=== PATIENT | male | born 1970 | race Caucasian/White ===

== ENCOUNTER 2019-12-13 20:08 | Emergency (ER) | payer OTHER ==
[~2019-12-13] VITALS: Ht 185.4 cm; Wt 102.8 kg
[2019-12-13] MEDS ORDERED: HYDROcodone/acetaminophen 5mg/325mg tablet PO STA (20:19)
[2019-12-13] MEDS ORDERED: ketamine 10mg/ml 20ml inj IV ONE (21:05)
[2019-12-13] MEDS ORDERED: ketamine 50 mg/ml 10ml vial IV ONE (21:30)
--- NOTE | 2019-12-13 21:42 | NUR ---
AWAITING RT, STATES HE IS READY. PT ON CARDIAC MONITORING, SP02 AND NC AT BS AND BP CUFF ON LEFT ANKLE. SWATH APPLIED TO HIS CHEST ALREADY. HIS IV IS PATENT. NS INFUSING. MEDS ON STANDBY.
--- NOTE | 2019-12-13 21:54 | NUR ---
CONSENT SIGNED, RT AT THE BS. MADE AWARE.
--- NOTE | 2019-12-13 22:07 | NUR ---
xray here for post reduction films
--- NOTE | 2019-12-13 22:10 | NUR ---
pt took half a swing at [place] the tech. Calmed pt down, instructed him it is just the medicine, that he is safe.
--- NOTE | 2019-12-13 22:24 | NUR ---
He is well now. He said that he felt like he was on a cloud pulling books and that everything was so vivid. He apologized for removing his sling and swinging.
--- NOTE | 2019-12-13 22:27 | NUR ---
he drank some water and tolerated it well
[2019-12-13 22:30] VITALS: BP 151/87
--- NOTE | 2019-12-13 22:31 | NUR ---
for a period of time while he was awakening after he swung I had to stand at the bedside and comfort him and tell him it was ok and that he was safe.
== END 2019-12-13 22:59 | disposition home or self-care (01) ==
LOC: ER 20:09
DX: S43.084A Other dislocation of right shoulder joint, initial encounter (principal); M25.511 Pain in right shoulder; R20.0 Anesthesia of skin; I10 Essential (primary) hypertension; F41.9 Anxiety disorder, unspecified; F32.9 Major depressive disorder, single episode, unspecified; Z88.8 Allergy status to other drugs, medicaments and biological substances; W18.39XA Other fall on same level, initial encounter; Y93.89 Activity, other specified; Y92.89 Other specified places as the place of occurrence of the external cause; Y99.8 Other external cause status
CPT/HCPCS: 23650; 73020; 73030; 94760; 99152; 99285